=== PATIENT | male | born 1970 | race Caucasian/White ===

== ENCOUNTER 2020-11-02 00:36 | Outpatient (CLI) | payer OTHER, SELFPAY ==
[2020-11-02 19:18] LABS: SARS-CoV-2 RNA PCR Negative
== END 2020-11-02 00:37 | disposition home or self-care (01) ==
LOC: ANHCOVIDDT 00:37
PROVIDERS: PCP Family Medicine; Visit Provider Internal Medicine Gastroenterology
DX: Z01.812 Encounter for preprocedural laboratory examination (principal); Z20.822 Contact with and (suspected) exposure to COVID-19
CPT/HCPCS: C9803; U0003; U0005

== ENCOUNTER 2020-11-05 00:45 | Day surgery (SDC) | payer OTHER, SELFPAY ==
[2020-10-19 10:36] VITALS: BMI 31.4
[2020-11-05 07:07] VITALS: BP 110/89; PULSE 81; RESP 18; TEMP 36.6; O2SAT 96
[2020-11-05] MEDS: LACTATED RINGERS 1,000 ML 150 ML IV CONT (07:11)
--- NOTE | 2020-11-05 08:13 | WPDANESEPPF ---
Anes - Initial Pre Proc Eval Procedure: Operation Date: 11/05/20 08:30 Proposed Procedures p Screening Colonoscopy - Real Sam MD Date/Time: 11/05/20 08:13 Surgeon: Real Sam MD Pre Op Diagnosis: Neoplasm Screening Patient Data Age: 50 Gender: M Height: 5 ft 11 in Weight: 98.9 kg Last Vital Signs Temp 97.8 F 11/05/20 07:07 Pulse 81 11/05/20 07:07 Resp 18 11/05/20 07:07 BP 110/89 11/05/20 07:07 Pulse Ox 96 11/05/20 07:07 Allergies Allergy/AdvReac Type Severity Reaction Status Date / Time No Known Allergies Allergy Unknown Verified 11/05/20 07:06 Home Medications Medication Instructions Recorded Confirmed Type fenofibric acid (choline) 135 mg 135 mg PO DAILY #90 cap 08/30/20 10/19/20 Rx capsule,delayed release sildenafil 100 mg tablet 100 mg PO DAILY PRN #6 tablet 10/07/20 10/19/20 Rx lisinopril-hydrochlorothiazide 1 tablet PO DAILY 10/19/20 10/19/20 History rosuvastatin 10 mg tablet 10 mg PO HS #90 tablet 10/21/20 11/05/20 Rx Patient hx anesthesia problems: none Family hx anesthesia problems: none PMFSH Past Medical History Medical History Strabismus 1974 Surgical History Surgical History H/O arthroscopy of knee 1992 H/O colonoscopy 2010 History of arthroplasty of finger of right hand Middle finger Family History Family History Father Diabetes mellitus, Onset Age: 68 Hypertension, Onset Age: 68 Mother Hypertension Family history of elevated blood lipids Sibling Hypertension Family history of elevated blood lipids Social History Social History Smoking packs per day: 1 Smoking cigarettes per day: 20.0 Years smoked: 20 Smoking pack-years: 20.00 Smoking status: Former smoker Tobacco type: cigarettes Alcohol intake: current Drinks per week: 3 Substance use: never Substance use type: does not use Living arrangements: with family Spiritual care concerns: No Anes - Eval Final PreProcedure Day of Procedure 11/05/20 08:13 Patient weight: obese Heart: regular rate and rhythm Lungs: clear to auscultation Airway: Mallampati scale class II Neurological: alert and oriented Last oral intake: >/= 8 hours ASA classification: III Emergent: no Anesthetic plan: proceed Anesthesia type and monitoring: general GIVS and standard monitoring Informed Consent: The patient's anesthetic plan and its attendant risks and benefits were discussed with the patient/family/POA. Questions were solicited and answers provided to the satisfaction of the patient/family/POA.
--- NOTE | 2020-11-05 08:48 | PM.HPGS ---
History of Present Illness History of Present Illness Consent: Risks, benefits, and alternatives have been discussed and questions answered. Patient agrees to proceed with procedure. Chief complaint: Neoplasm Screening Narrative: Joo España is a 50 year old male here with history of polyps, last colonoscopy 2014 Review of Systems Constitutional: Constitutional: Denies headache(s) and Denies weakness Eyes: Eyes: Denies blurry vision ENT: Reports Normal hearing present, Denies headache(s) and Denies neck pain Cardiovascular: Cardiovascular: Denies chest pain and Denies dyspnea Respiratory: Respiratory: Denies dyspnea Gastrointestinal: Gastrointestinal: Reports no additional gastrointestinal complaints Genitourinary: Genitourinary: Denies dysuria Musculoskeletal: Musculoskeletal: Denies neck pain Integumentary/Breasts: Skin/Breast: Denies dry skin Neurologic: Reports Normal hearing present, Denies headache(s) and Denies weakness Psychiatric: Psychiatric: Denies anxiety Endocrine: Endocrine: Denies change in body appearance Hematologic/Lymphatic: Hematologic/Lymphatic: Denies easy bleeding Allergic/Immunologic: Allergic/Immunologic: Denies urticaria PMFSH Past Medical History Medical History (Updated 11/05/20 @ 08:14 by Bony Day MD) Hyperlipidemia Hypertension Strabismus 1974 Surgical History Surgical History H/O arthroscopy of knee 1992 H/O colonoscopy 2010 History of arthroplasty of finger of right hand Middle finger Family History Family History Father Diabetes mellitus, Onset Age: 68 Hypertension, Onset Age: 68 Mother Hypertension Family history of elevated blood lipids Sibling Hypertension Family history of elevated blood lipids Social History Social History Smoking packs per day: 1 Smoking cigarettes per day: 20.0 Years smoked: 20 Smoking pack-years: 20.00 Smoking status: Former smoker Tobacco type: cigarettes Alcohol intake: current Drinks per week: 3 Substance use: never Substance use type: does not use Living arrangements: with family Spiritual care concerns: No Meds Home Medications and Allergies Home Medications Medication Instructions Recorded Confirmed Type fenofibric acid (choline) 135 mg 135 mg PO DAILY #90 cap 08/30/20 10/19/20 Rx capsule,delayed release sildenafil 100 mg tablet 100 mg PO DAILY PRN #6 tablet 10/07/20 10/19/20 Rx lisinopril-hydrochlorothiazide 1 tablet PO DAILY 10/19/20 10/19/20 History rosuvastatin 10 mg tablet 10 mg PO HS #90 tablet 10/21/20 11/05/20 Rx Allergies Allergy/AdvReac Type Severity Reaction Status Date / Time No Known Allergies Allergy Unknown Verified 11/05/20 07:06 Vital Signs Vital Signs - 24 hr 11/05/20 07:07 Temperature 97.8 F Pulse Rate 81 Respiratory Rate 18 Blood Pressure 110/89 Pulse Oximetry 96 Exam Const: General: comfortable and no acute distress HENMT: General nose exam: Normal nares present Eyes: General: appearance normal, both eyes and all related structures Neck: Neck: no JVD Resp: Auscultation: clear to auscultation bilaterally Cardio: Rate: regular rate Rhythm: regular rhythm GI: Inspection: non-distended GI Palp: Yes Soft to palpation Skin: General skin exam: normal color Neuro: General: gait normal Speech: normal speech Extrem: General: normal to inspection Psych: Mental Status: mental status grossly normal Assessment and Plan Assessment and plan (1) Screening for colon cancer: Code(s): Z12.11 - Encounter for screening for malignant neoplasm of colon Status: Acute Assessment and Plan: will proceed with colonoscopy
[2020-11-05 09:06] VITALS: BP 92/58; PULSE 67; RESP 15; O2SAT 97
[2020-11-05 09:16] VITALS: BP 100/67; PULSE 69; RESP 18; O2SAT 96
[2020-11-05 09:26] VITALS: BP 117/79; PULSE 67; RESP 13; O2SAT 98
== END 2020-11-05 09:45 | disposition home or self-care (01) ==
PROVIDERS: PCP Family Medicine; Visit Provider Internal Medicine Gastroenterology
PROC: 0DJD8ZZ Inspection of Lower Intestinal Tract, Via Natural or Artificial Opening Endoscopic (ICD-10-PCS; CPT 45378; principal; 2020-11-05 08:30)
DX: Z12.11 Encounter for screening for malignant neoplasm of colon (principal); K64.8 Other hemorrhoids; Z86.010 Personal history of colon polyps; I10 Essential (primary) hypertension; E78.5 Hyperlipidemia, unspecified; Z87.891 Personal history of nicotine dependence; E66.9 Obesity, unspecified; Z68.30 Body mass index [BMI] 30.0-30.9, adult
CPT/HCPCS: 45378; C9803; J2704; J7120; U0003; U0005

== ENCOUNTER 2022-02-14 09:23 | Emergency (ER) | payer OTHER, SELFPAY ==
--- NOTE | ~2022-02-14 | XR_ITS ---
XR foot LT min 3V 02/14/2022 09:55 INDICATION: Left foot pain PROCEDURE: 4 views left foot COMPARISON: No prior studies for comparison. FINDINGS: Fracture, dislocation or subluxation is not identified. Lisfranc joint is intact. The soft tissues appear within normal limits. No foreign bodies are identified. There is a small degenerative calcaneal enthesophyte. IMPRESSION: 1: NO ACUTE BONE OR JOINT ABNORMALITY IDENTIFIED. Reviewed, dictated and finalized at location A.
[2022-02-14 09:30] VITALS: BP 121/76; PULSE 73; RESP 14; TEMP 36.4; O2SAT 97
--- NOTE | 2022-02-14 09:54 | ED.LOWEXIN ---
HPI - Extremity Injury (Lower) General Chief Complaint: Extremity Injury, Lower Stated Complaint: Left Foot Injury Time Seen by Provider: 02/14/22 09:35 Source: patient Mode of arrival: ambulatory Limitations: no limitations History of Present Illness HPI Narrative: Mr. España is a 51-year-old male patient presenting to the clinic today with complaints of left lateral foot pain x1 day. He reports that symptoms started yesterday and is he developed some dull sharp aching pain to the left lateral foot. No known injury. States that it is harder to bear weight due to the pain. Related Data Home Medications Medication Instructions Recorded Confirmed lisinopril-hydrochlorothiazide 1 tablet PO DAILY 02/14/22 02/14/22 Allergies Allergy/AdvReac Type Severity Reaction Status Date / Time No Known Allergies Allergy Unknown Verified 02/14/22 10:35 Review of Systems Review of Systems: Pertinent positives per HPI. Patient denies any fever, chills, rash, headache, visual changes, dizziness, cough, runny nose, sore throat, shortness of breath, chest pain, palpitations, nausea, vomiting, diarrhea, constipation, abdominal pain, or any urinary issues. [facility] Past Medical History Medical History Hyperlipidemia Hypertension Strabismus 1974 Surgical History Surgical History H/O arthroscopy of knee 1992 H/O colonoscopy 2010 History of arthroplasty of finger of right hand Middle finger S/P total knee arthroplasty (09/20/21) RIGHT Family History Family History Father Diabetes mellitus, Onset Age: 68 Hypertension, Onset Age: 68 Mother Hypertension Family history of elevated blood lipids Sibling Hypertension Family history of elevated blood lipids Social History Social History Years smoked: 20 Tobacco type: cigarettes Alcohol intake: current Drinks per week: 3 Substance use: never Substance use type: does not use Spiritual care concerns: No Comments At the time of my signature, I reviewed and agree with the nursing past medical, surgical, social, and family history. There is no relevant family history pertinent to the patient complaint. Exam Narrative: General: Well-developed, well nourished, in no apparent distress Head: Normocephalic, atraumatic. Cardio: Regular rate and rhythm, s1 and s2 normal, no murmur appreciated. Resp: Clear to auscultation bilaterally, no rhonchi, rales, wheezing or rubs. Musculoskeletal: No deformity, non-tender to palpation, grossly normal range of motion, muscle strength strong and equal, peripheral pulse strong, no edema, no cyanosis, normal gait and station Course Course Emergency Course: Portions of this record may have been created with voice recognition software. Level of Care: Express Care Visit Vital Signs Vital signs: Vital Signs Temperature 36.4 C 02/14/22 09:30 Pulse Rate 73 02/14/22 09:30 Respiratory Rate 14 02/14/22 09:30 Blood Pressure 121/76 02/14/22 09:30 Pulse Oximetry 97 02/14/22 09:30 Temperature 36.4 C 02/14/22 09:30 Pulse Rate 73 02/14/22 09:30 Respiratory Rate 14 02/14/22 09:30 Blood Pressure 121/76 02/14/22 09:30 Pulse Oximetry 97 02/14/22 09:30 Vital signs reviewed MDM - Extremity Injury (Lower) MDM Narrative Medical decision making narrative: At the time of visit patient is resting comfortably on the exam table. He has pain along the lateral malleolus and superior lateral of the foot. X-ray is negative in the clinic. I suspect potential arthritis versus the beginning of gout. We will place the patient on a prescription for some prednisone as this will help with any inflammation. Brannon wrap was also applied and was given instructions for
== END 2022-02-14 10:20 | disposition home or self-care (01) ==
PROVIDERS: Emergency Provider Nurse Practitioner Family
DX: M79.672 Pain in left foot (principal); F17.210 Nicotine dependence, cigarettes, uncomplicated; E78.5 Hyperlipidemia, unspecified; I10 Essential (primary) hypertension; Z96.651 Presence of right artificial knee joint
CPT/HCPCS: 73630; 99213; G0463

== ENCOUNTER 2024-09-15 11:21 | Outpatient (CLI) | payer OTHER, SELFPAY ==
--- NOTE | ~2024-09-15 | US_ITS ---
RIGHT LOWER EXTREMITY VENOUS ULTRASOUND Ordering provider: Shakira Lee DO History: . M79.431 - Pain in right lower leg . Comparison: None. FINDINGS: --COMMON FEMORAL: Patent and free of thrombus. Normal compressibility, phasic flow and augmentation. --PROXIMAL SUPERFICIAL FEMORAL: Patent and free of thrombus. Normal compressibility, phasic flow and augmentation. --DISTAL SUPERFICIAL FEMORAL: Patent and free of thrombus. Normal compressibility, phasic flow and au gmentation. --POPLITEAL: Patent and free of thrombus. Normal compressibility, phasic flow and augmentation. --POSTERIOR TIBIAL: Patent and free of thrombus. Normal compressibility, phasic flow and augmentation . IMPRESSION: Negative right lower extremity venous US. No deep vein thrombosis. Reviewed, dictated and finalized at location A. L STRIPPER
== END 2024-09-15 11:22 | disposition home or self-care (01) ==
PROVIDERS: PCP Family Medicine; Visit Provider Family Medicine
DX: M79.661 Pain in right lower leg (principal)
CPT/HCPCS: 93971

== ENCOUNTER 2024-09-18 15:15 | Outpatient (CLI) | payer OTHER, SELFPAY ==
--- NOTE | ~2024-09-18 | XR_ITS ---
EXAMINATION: XR knee RT min 4V DATE: 09/18/2024 15:33 INDICATION: Right calf pain. TECHNIQUE: 4 views of right knee were obtained. COMPARISON: None. FINDINGS: There is a total right knee arthroplasty without patellar resurfacing in near-anatomic alig nment. No fracture. No periprosthetic lucency to suggest loosening or infection. There are small oste ophytes of the patella. There is a small knee joint effusion. IMPRESSION: 1. Total right knee arthroplasty in near-anatomic alignment. 2. Small right knee joint effusion. Reviewed, dictated and finalized at location A. TENANCE CRAFTSMAN
--- NOTE | ~2024-09-18 | XR_ITS ---
EXAMINATION: XR tibia fibula RT 2V DATE: 09/18/2024 15:33 INDICATION: Right calf pain. TECHNIQUE: 2 views of right tibia and fibula on 3 radiographs were obtained. COMPARISON: None. FINDINGS: There is a total right knee arthroplasty in near-anatomic alignment. No fracture. Right ank le joint space is normal. There are enthesophytes at the posterior and plantar aspects of calcaneal t uberosity. IMPRESSION: 1. Total right knee arthroplasty in near-anatomic alignment. Reviewed, dictated and finalized at location A. AT SYSTEMS ENGINEER
== END 2024-09-18 15:16 | disposition home or self-care (01) ==
LOC: GOSHIMG 15:16
PROVIDERS: PCP Family Medicine; Visit Provider Family Medicine
DX: M25.461 Effusion, right knee (principal); Z96.651 Presence of right artificial knee joint
CPT/HCPCS: 73564; 73590

== ENCOUNTER 2024-11-05 08:55 | Emergency (ER) | payer OTHER, SELFPAY ==
[2024-11-05 09:05] VITALS: BP 110/63; PULSE 97; RESP 18; TEMP 36.4; O2SAT 97
--- OUTSIDE RECORDS SUMMARY | 2024-11-05 09:10 | XMS_ITS | Referral Summary ---
Author Organization [facility] Address [address] [place] [address] Care Team Providers Care Four Slide Operator Name Role Phone Shakira Lee DO Primary Care Provider [phone]- [phone] Allergies No known active allergies Medications fenofibrate choline (TRILIPIX) 135 mg capsuleIndicati ons:hyperlipide alfa Take 135 mg by mouth every morning 0 Active lisinopril-hydr oCHLOROthiazide (ZESTORETIC) 20-25 mg per tabletIndicatio ns:hypertension Take 1 tablet by mouth every morning 0 Active sildenafiL (VIAGRA) 100 mg tablet TAKE 1 TABLET BY MOUTH EVERY DAY NEEDED FOR SEXUAL ACTIVITY 30 MINUTES TO 4 HOURS BEFORE ACTIVITY 1 Active rosuvastatin (CRESTOR) 20 mg tabletIndicatio ns:hyperlipidem ia Take 20 mg by mouth every morning 1 Active celecoxib (CeleBREX) 200 mg capsuleIndicati ons:Osteoarthri tis,Postoperati ve Acute Pain Take 1 tablet twice daily after surgery until prescription is finished. You should already have this prescription at home. Start morning of 09/21/2021. 10 capsule 1 Active aspirin 81 mg enteric coated tablet Take 1 tablet (81 mg total) by mouth 2 (two) times a day 60 tablet 1 Active senna-docusate (PERICOLACE) 8.6-50 mg Take 1 tablet by mouth 2 (two) times a day May increase to 4 tablets twice daily if needed. HOLD medication for diarrhea. 80 tablet 1 1 Active Additional Information Patient not taking.Reported on 09/19/2022 traMADoL (ULTRAM) 50 mg tabletIndicatio ns:Postoperativ e pain Take 1 tablet (50 mg total) by mouth every 6 (six) hours 42 tablet 2 Active Additional Information Patient not taking.Reported on 09/19/2022 amoxicillin 500 mg tablet/capsuleI ndications:Prop hylaxis, Medical Take 1 tablet/capsule (500 mg total) by mouth as directed TAKE 4 PILL 1 HOUR BEFORE DENTAL APPOINTMENT. 12 tablet/capsu le 2 Active Active Problems Problem Noted Date Diagnosed Date Primary osteoarthritis of right knee 07/05/2021 Overview (07/05/2021): Added automatically from request for surgery [id number] Immunizations Name Administration Dates Next Due Pfizer SARS-CoV-2 Monovalent Vaccination (12+ Yrs) PURPLE 12/17/2020 Social History Tobacco Use Types Packs/Day Years Used Date Smoking Tobacco: Former Cigarettes Q uit: 2014 Smokeless Tobacco: Never Alcohol Use Standard Drinks/Week Comments Yes 0 (1 standard drink = 0.6 oz pur e alcohol) AUDIT-C Answer Date Recorded Q1: How often do you have a drink containing alc ohol? 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 Gender Identity Not on file Sexual Orientation Not on file Last Filed Vital Signs Vital Sign Reading Time Taken Comments Blood Pressure 122/66 09/20/2021 11:45 AM ODD JOBS DAY WORKER Pulse 83 09/20/2021 12:05 PM ODD JOBS DAY WORKER Temperature 37.1 ??C (98.78 ??F) 09/20/2021 11:45 AM ODD JOBS DAY WORKER Respiratory Rate 15 09/20/2021 12:0 5 PM ODD JOBS DAY WORKER Oxygen Saturation 94% 09/20/2021 12: 05 PM ODD JOBS DAY WORKER Inhaled Oxygen Concentration - - Weight 100.4 kg (221 lb 6.4 oz) 09/20/2021 6:05 AM ODD JOBS DAY WORKER Height 180.3 cm (5' 11 ) 09/20/2021 6:05 AM ODD JOBS DAY WORKER Body Mass Index 30.88 09/20/2021 6:05 AM ODD JOBS DAY WORKER Plan of Treatment Not on file Medical Devices Implanted Type Area Entertainment Manager Device Identifier Shelf Expiration Date Model / Serial / Lot Depuy Orthopa[employer] [id number] Attune Cruciate Retain Cementless Knee Right 8 Component Femoral - Sna - [id number] Implanted:Qty: 1 on 09/20/2021 by Lenny Fowler MD at [facility] Other - see comments Right: Knee Dep[employer] [id number] 07/31/2030 [id number] / NA / [id number] Attune Tibial Insert Fixed Bearing Medial Stabilized 8 Right 5 Mm (Aox) Implanted:Qty: 1 on 09/20/2021 by Lenny Fowler MD at [facility] Other - see comments Right: Knee Attune Medical [id number] 06/30/2029 [id number] / NA / [id number] Description:[id number] [facility] # [id number] Attune Tibial Base Affixium Fixed Bearing Size 8 Implanted:Qty: 1 on 09/20/2021 by Lenny Fowler MD at [facility] Other - see comments Right: Knee Attune Medical [id number] 07/31/2031 1506-21-008 / NA / [id number] Screws Left: Knee Insurance [facility] H[facility]/PPO Address: [facility] [id number] [place] [phone] [facility] Care Teams Four Slide Operator Relationship Specialty Start Date End Date Shakira Lee DO PCP - General Family Medicine 10/11/20
--- OUTSIDE RECORDS SUMMARY | 2024-11-05 09:10 | XMS_ITS | Clinical Summary ---
Author Organization [facility] Address [address] [place] [address] Care Team Providers Care Hub Borer Name Role Phone Shakira Lee DO Primary Care Provider +1- [phone] Allergies No known active allergies Medications fenofibrate [...] (07/05/2021): Added automatically from request for surgery [id number] Immunizations Name Administration Dates Next Due Pfizer SARS-CoV-2 Monovalent Vaccination (12+ Yrs) PURPLE 12/17/2020 Surgical History Surgery Date Site/Laterality Comments KNEE SURGERY 10/01/2006 - 09/30/2007 Left [facility] KNEE ARTHROSCOPY 10/01/1993 - 09/30/1994 Right [facility]PLAC[facility] Medical History Medical History Date Comments Hypercholesteremia Hypertension Family History Medical History Relation Name Comments Diabetes Father Hypertension Father Hypertension Mother Anesthesia problems Neg Hx Relation Name Status Comments Father Mother Social History Tobacco Use Types Packs/Day Years Used Date Smoking Tobacco: Former Cigarettes Q uit: 2015 Smokeless Tobacco: Never Alcohol Use Standard Drinks/Week [...] on file 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 Gender Identity Not on file Sexual Orientation Not on file Obstetrics History Last Filed Vital Signs Vital Sign Reading Time Taken Comments Blood Pressure 122/66 09/20/2021 11:45 AM TIMBER MANAGEMENT ASSISTANT Pulse 83 09/20/2021 12:05 PM TIMBER MANAGEMENT ASSISTANT Temperature 37.1 ??C (98.78 ??F) 09/20/2021 11:45 AM TIMBER MANAGEMENT ASSISTANT Respiratory Rate 15 09/20/2021 12:0 5 PM TIMBER MANAGEMENT ASSISTANT Oxygen Saturation 94% 09/20/2021 12: 05 PM TIMBER MANAGEMENT ASSISTANT Inhaled Oxygen Concentration - - Weight 100.4 kg (221 lb 6.4 oz) 09/20/2021 6:05 AM TIMBER MANAGEMENT ASSISTANT Height 180.3 cm (5' 11 ) 09/20/2021 6:05 AM TIMBER MANAGEMENT ASSISTANT Body Mass Index 30.88 09/20/2021 6:05 AM TIMBER MANAGEMENT ASSISTANT Plan of Treatment Health Maintenance Due Date Last Done Comments Colon Cancer Screening-Colonoscopy 1971 Depression Screening 1971 Hepatitis C Screening 1971 Prostate Cancer Screening-PSA 1971 DTaP/Tdap/Td Vaccine (1 - Tdap) 1982 Hepatitis B Screening 1989 Regular Well Visit/Exam 18-64 1989 Zoster Vaccine (1 of 2) 2021 Covid-19 Vaccine (2023-2 5 season) 2024 10/03/2021, 12/17/2020, 11/26/2020 Influenza Vaccine (#1) 2024 Pneumococcal vaccine <65 Aged Out No longer eligible based on patient's age to complete this topic Medical Devices Implanted Type Area Plant Operations Coordinator Device Identifier Shelf Expiration Date Model / Serial / Lot Depuy Orthopaed[employer] Inc [id number] Attune Cruciate Retain Cementless Knee Right 8 Component Femoral - Sna - [id number] Implanted:Qty: 1 on 09/20/2021 by Lenny Fowler MD at [facility] Other - see comments Right: Knee Depuy [employer] [id number] 07/31/2030 [id number] / NA / [id number] Attune Tibial Insert Fixed Bearing Medial Stabilized 8 Right 5 Mm (Aox) Implanted:Qty: 1 on 09/20/2021 by Lenny Fowler MD at [facility] Other - see comments Right: Knee Attune Medical [id number] 06/30/2029 [id number] / NA / [id number] Description:[id number] [facility] # [id number] Attune Tibial Base Affixium Fixed Bearing Size 8 Implanted:Qty: 1 on 09/20/2021 by Lenny Fowler MD at [facility] Other - see comments Right: Knee Att[employer] Medical [id number] 07/31/2031 1506-21-008 / NA / [id number] Screws Left: Knee Insurance [facility] Care Teams Hub Borer Relationship Specialty Start Date End Date Shakira Lee DO PCP - General Family Medicine 10/11/20
--- NOTE | 2024-11-05 09:36 | ED_ITS ---
HPI - URI/Sore Throat General Chief Complaint: Upper Respiratory Infection Stated Complaint: Fever/Cough/Chills Time Seen by Provider: 11/05/24 09:22 Source: patient, RN notes reviewed and old records reviewed Mode of arrival: ambulatory Limitations: no limitations History of Present Illness HPI Narrative: 54-year-old male who presents to [facility] with complaints of cough,headaches, chills,fevers up to 100F, sore throat and body aches since last night. Patient reports that he has been taking some Tylenol for his fever and generalized discomfort and headache. Patient reports no shortness of breath,denies any nausea or vomitining or diarrhea. MD elicited complaint: fever, cough, sore throat, rhinorrhea, nasal congestion and other (headaches chills) Onset (ago): day(s) (since last night) Pain scale (0-10): 6 Able to tolerate fluids by mouth: Yes Treatments prior to arrival: acetaminophen Related Data Allergies Allergy/AdvReac Type Severity Reaction Status Date / Time No Known Allergies Allergy Unknown Verified 11/05/24 09:19 Review of Systems Review of Systems: CONSTITUTIONAL: Reports malaise, chills, sweats, or fever. EYES: Denies visual changes, redness, or discharge. ENT: Reports rhinorrhea, congestion, sinus pain, no otalgia and positive for sore throat. CARDIOVASCULAR: Denies chest pain, palpitations, or edema. RESPIRATORY: Reports cough.? Denies dyspnea. GASTROINTESTINAL: Denies abdominal pain, nausea, vomiting, diarrhea SKIN: Denies rash or itching. MUSCULOSKELETAL:Reports myalgia. NEUROLOGIC: Reports headache. All systems reviewed & are unremarkable except as noted in HPI and below PMFSH Past Medical History Medical History Hypertension Hyperlipidemia Strabismus 1974 Surgical History Surgical History S/P total knee arthroplasty (09/20/21) RIGHT History of arthroplasty of finger of right hand Middle finger H/O arthroscopy of knee 1992 H/O colonoscopy 2010 Family History Family History Father Diabetes mellitus, Onset Age: 68 Hypertension, Onset Age: 68 Mother Hypertension Family history of elevated blood lipids Sibling Hypertension Family history of elevated blood lipids Social History Social History Years smoked: 20 Smoking status: Former smoker Tobacco type: cigarettes Alcohol intake: current Drinks per week: 3 Substance use: never Substance use type: does not use Lack of Transportation: No Lack of Food: Never True Current Housing: I Have Housing Concerned About Future Housing: No Difficulty Paying Gas/Electric Bills: No Difficulty Paying for Meds: No Currently Unemployed: No Education: Bachelor's Degree Difficulty w/ Childcare or Family Care: No Living arrangements: with family Occupation/Education: occupation Gender identity (if verbalized by the patient): Male Spiritual care concerns: No Agree to blood products: Yes Comments At time of signature, agree with nursing past medical, surgical, social and family history. There is no relevant family history pertinent to the presenting complaint Exam Narrative: GENERAL: Well-appearing, well-nourished, and in no acute distress. HEAD: Normocephalic EYES: PERRLA, conjunctivae clear ENT: Nares clear, turbinates edematous and erythematous, clear discharge. Mucous membranes moist. TM pearly pizano with dull light reflex bilaterally; no tragal tenderness. Oropharynx erythematous without lesions. Tonsils not enlarged and without exudate, no drooling, no hoarseness, no trismus, uvula midline.post nasal drainge NECK: Supple. No lymphadenopathy CHEST: decreased breath sounds to auscultation, breath sounds equal. No wheezing, rhonchi, rales, or stridor. No respiratory distress, speaks in full sentences.cough, SAO2 97% on room air HEART: Regular rate and rhythm. No murmur heard. SKIN: Warm, dry, no rash. NEURO: Alert and oriented x3. PSYCH: Normal mood and affect Course Course Emergency Course: Patient is aware of diagnosis, understands and agrees to treatment plan.? Anticipatory guidance given.? Patient agrees to follow-up as directed and is aware of reasons to seek care at the emergency department. Portions of this record may have been created with voice recognition software Level of Care: Express Care Visit Vital Signs Vital signs: Vital Signs Temperature 36.4 C L 11/05/24 09:05 Pulse Rate 97 11/05/24 09:05 Respiratory Rate 18 11/05/24 09:05 Blood Pressure 110/63 11/05/24 09:05 Pulse Oximetry 97 11/05/24 09:05 Oxygen Delivery Room Air 11/05/24 09:05 Temperature 36.4 C L 11/05/24 09:05 Pulse Rate 97 11/05/24 09:05 Respiratory Rate 18 11/05/24 09:05 Blood Pressure 110/63 11/05/24 09:05 Pulse Oximetry 97 11/05/24 09:05 Oxygen Delivery Room Air 11/05/24 09:05 Reviewed MDM - URI/Sore Throat MDM Narrative Medical decision making narrative: Differential diagnosis considered: Martel virus, strep pharyngitis, allergic rhinitis, upper respiratory tract infection, sinusitis, rhinosinusitis, nasopharyngitis. viral pharyngitis, otitis media, otitis externa, pneumonia, bronchitis, viral cough syndrome, viral syndrome, and influenza.? Exam findings show no acute concerns or changes; patient is non-toxic appearing and is in no distress.? Patient is appropriate for outpatient treatment and follow-up. Differential Diagnosis Differential diagnosis: Likely upper respiratory infection, viral infection, influenza, pharyngitis and other (COVID) Medical Records Attestation: I reviewed the patient's medical records. Lab Data Attestation: I reviewed the patient's lab results. Lab results narrative: Influenza A negative, Influenza B negative, COVID antigen negative Labs: Lab Results 11/05/24 Range/Units 09:42 POC Influenza A Ag Negative (Negative) POC Influenza B Ag Negative (Negative) POC SARS CoV-2 Ag Negative (Negative) Critical Care Time Critical Care Time Critical Care Time: No Discharge Plan Discharge Clinical Impression: Viral syndrome Patient Disposition: Home, Self-Care Condition: Stable Instructions: Antibiotic Form, Viral Syndrome (ED) Additional Instructions: Increase fluids especially juices and water [id number] cough and cold medicine of your choice for your symptoms Zyrtec Claritin or Nena daily include Coricidin brand decongestant Tylenol or ibuprofen for any fever pain recommend alternating Recommend Delsym or Robitussin cough syrup heat to the face 20-30 minutes 4-6 times a day for pain Salt water gargles, throat lozenges or throat sprays as desired Monitor fevers every 4 hours If your symptoms persist, change or worsen significantly before you can contact your personal physician then please, without delay, go to the emergency department for further evaluation. Follow-up with PCP in 7-10 days or sooner if needed Patient Language: [place] Prescriptions: No Action lisinopril-hydrochlorothiazide 20-25 mg tablet See Rx Instructions .ROUTE .COMPLEX Qty: 90 1RF Dose Instruction: TAKE 1 TABLET DAILY Rx Instructions: TAKE 1 TABLET DAILY rosuvastatin 20 mg tablet See Rx Instructions .ROUTE .COMPLEX Qty: 90 1RF Dose Instruction: TAKE 1 TABLET DAILY Rx Instructions: TAKE 1 TABLET DAILY fenofibric acid (choline) 135 mg capsule,delayed release(DR/EC) 135 mg PO DAILY Qty: 90 1RF Follow-up/Referrals: Shakira Lee DO [Primary Care Provider] - Stand Alone Forms: Work/School Release IP Time of Disposition: 09:49 Quality Huong Coma Scale Eyes: Open Verbal: Oriented and Alert Motor: Follows Commands Huong Coma Total Score: 15
[2024-11-05 09:45] LABS: EDCOVIDSCREEN Negative (Negative); EDINFLUASCREEN Negative (Negative); EDINFLUBSCREEN Negative (Negative)
== END 2024-11-05 09:50 | disposition home or self-care (01) ==
PROVIDERS: Emergency Provider Registered Nurse; PCP Family Medicine
DX: B34.9 Viral infection, unspecified (principal); I10 Essential (primary) hypertension; Z87.891 Personal history of nicotine dependence; Z20.822 Contact with and (suspected) exposure to COVID-19
CPT/HCPCS: 87426; 87804; 99212; G0463